=== PATIENT | female | born 1950 | race Caucasian/White ===

== ENCOUNTER → 2024-08-23 | Outpatient (CLI) | payer MEDICARE, MEDICAID ==
[~2024-08-23] VITALS: Ht 154.9 cm; Wt 59.9 kg
[~2024-08-23] MED LIST: ACET-1079 PO; ASPI81CH43; ATOR-47 PO; FAMO40TA7 PO; GABA-1250 PO; HEPARIN SODIUM (PORCINE) 5000 UNITS/ML 1ML VIAL ONE; HYDR-4902 PO; LIDOCAINE 2%HCL (LOCAL ANESTH.) INJ 20ML MDV ONE; LISI10TA34 PO; MECL-90 PO; METF-370 PO; METO-158 PO; MIDAZOLAM HCL 2MG/2ML 2ml VIAL (1mg/ml) ONE; MIRT1TAB40 PO; NIFE1TAB36 PO; POM; SENN-199 PO; SITA50TA PO; ceFAZolin 1GM/50ML 50 ML IV ONE; fentaNYL CITRATE 100 MCG/2 ML VL ONE; hydrALAZINE HCL 20 MG/ML VL ONE
[2024-08-23 10:31] VITALS: BP 139/50; PULSE 61; RESP 19; TEMP 97.5; O2SAT 95
[2024-08-23 10:46] VITALS: BP 131/51; PULSE 61; RESP 19; O2SAT 95
[2024-08-23 11:01] VITALS: BP 125/46; PULSE 58; RESP 18; O2SAT 95
--- NOTE | 2024-08-23 11:01 | DVH ---
XY Insertion of Venous Cath, HISTORY: PORT A CATH PL for chemotherapy. PROCEDURE: Informed consent was obtained. The patient was placed supine on the interventional table. 1 gram of Ancef was given. A limited localization ultrasound of the right neck base was obtained. The right upper chest and neck base were prepped with chlorhexidine which was allowed to dry and draped in the usual sterile fashion. Time out was performed. With real-time ultrasound guidance, the interna l jugular vein was accessed with a micropuncture kit, and an image documenting patency sent to PACS. The planned skin tract and the port placement site were were infiltrated with lidocaine with epinephr ine. The subcutaneous pocket was created with blunt dissection. The catheter was tunneled through the skin tract to the neck site. The [address] port was attached to the tubing flushed. The catheter was trimmed to desired length of 21 cm. The internal jugular vein entrance site was serially dilated and the catheter was placed through a peel-a-way sheath. The port was flushed with heparinized saline and demonstrated satisfactory flow. The skin openings were sutured closed in two layers with Vicryl, as well as and Dermabond and then sterile dressings applied. A post procedure image was obtained. No immediate complication was identified. DAP 83 FLUOROSCOPY TIME: 1.1 minutes. SEDATION: Dr. Singh Russo was personally responsible for the administration of moderate sedation during the procedure performed, including the use of an independent trained observer who had no other duties during the procedure. The drugs utilized were IV fentanyl and versed (see nursing log for details). The total time of supervision by the attending physician was approximately 45 minutes. FINDINGS: Widely patent right internal jugular vein. Post procedure image demonstrates [id number] r in the right upper chest with the tip right atrium. IMPRESSION: Successful placement of 8 [place] right chest [id number].
[2024-08-23 11:16] VITALS: BP 119/50; PULSE 64; RESP 13; O2SAT 95
--- NOTE | 2024-08-26 08:44 | ECG ---
[facility] Test Date: 2024-08-23 Test Time: 08:33:29 Pat Name: LAMBERTO WILLIAMSON Department: Room: Gender: F Loss Prevention Coordinator: Snow Fink : 1950 Requested By: ANDREY VELASCO Order Number: [id number] Reading MD: Guille Devlin Measurements Intervals [place] Rate: 52 P: 37 AL: 144 QRS: -4 QRSD: 130 T: 26 QT: 476 QTc: 442 Interpretive Statements Sinus bradycardia Right bundle branch block Electronically Signed On 08-28-2024 20:30:43 PDT by Guille Devlin Please click the below link to view image of tracing.
== END | disposition home or self-care (01) ==
LOC: XYW 06:17
PROVIDERS: ATTEND Radiology Diagnostic Radiology
DX: C25.0 Malignant neoplasm of head of pancreas (principal); I10 Essential (primary) hypertension; E11.9 Type 2 diabetes mellitus without complications; E78.5 Hyperlipidemia, unspecified; Z79.82 Long term (current) use of aspirin; Z79.899 Other long term (current) drug therapy; Z85.41 Personal history of malignant neoplasm of cervix uteri; Z90.712 Acquired absence of cervix with remaining uterus; Z90.49 Acquired absence of other specified parts of digestive tract; Z95.1 Presence of aortocoronary bypass graft; Z88.5 Allergy status to narcotic agent
CPT/HCPCS: 36561; 76937; 93005; C1788; C1894; J0360; J0690; J1644; J2250; J3010; J7040; 99152; 99153